=== PATIENT | female | born 1990 | race African-American/Black ===

== ENCOUNTER 2017-05-25 02:28 | Emergency (ER) | payer OTHER, SELFPAY ==
[2017-05-25] MEDS ORDERED: Ketorolac Tromethamine 30 MG/ML VIAL ONE (03:11)
== END 2017-05-25 03:32 | disposition home or self-care (01) ==
LOC: ERS 02:28
DX: K02.9 Dental caries, unspecified (principal); F32.9 Major depressive disorder, single episode, unspecified; F41.9 Anxiety disorder, unspecified; F41.0 Panic disorder [episodic paroxysmal anxiety]; F40.240 Claustrophobia
CPT/HCPCS: 96372; J1885

== ENCOUNTER 2017-05-28 19:01 | Emergency (ER) | payer SELFPAY | END 2017-05-28 19:36 | disposition left against medical advice (07) | LOC: ERS 19:01 | DX: Z53.21 Procedure and treatment not carried out due to patient leaving prior to being seen by health care provider (principal) ==

== ENCOUNTER 2017-06-01 03:25 | Emergency (ER) | payer SELFPAY | END 2017-06-01 04:14 | disposition left against medical advice (07) | LOC: ERS 03:25 | DX: Z53.21 Procedure and treatment not carried out due to patient leaving prior to being seen by health care provider (principal) ==

== ENCOUNTER 2017-07-21 11:12 | Emergency (ER) | payer SELFPAY ==
--- NOTE | 2017-07-21 11:59 | RAD ---
PA AND LATERAL CHEST RADIOGRAPH: Date: 07-21-17 History: Chest pain that started on Friday. Crackling in lungs. Comparison: 01-27-06 FINDINGS: The cardiac silhouette and pulmonary vasculature are within normal limits. Lungs remain clear. There has been no interval change from the prior exam. IMPRESSION: No acute cardiopulmonary process. POS: [facility]
[2017-07-21 12:10] LABS: #Basophils 0.1 thou/uL (0.0-0.2); #Eosinphils 0.2 thou/uL (0.0-0.7); #Lymphocytes 1.9 thou/uL (1.20-3.40); #Monocytes 0.4 thou/uL (0.11-0.59); #Neutrophils 3.2 thou/uL (1.40-6.50); %Basophils 1.3 % (0.0-1.0); %Eosinophils 3.7 % (0.0-10.0); %Monocytes 6.2 % (0.0-10.0); %Neutrophils 55.7 % (42.0-75.0); Hemoglobin 12.3 g/dL (12.0-16.0); Mean Corpuscular Hemoglobin 30.2 pg (27.0-31.0); Mean Corpuscular Volume 88.7 fl (81.0-99.0); Mean Platelet Volume 8.6 fL (7.4-10.4); Platelet Count 267 thou/uL (130-400); Red Blood Cell (RBC) Count 4.09 mill/uL (4.20-5.40); White Blood Cell (WBC) Count 5.8 thou/uL (4.8-10.8)
[2017-07-21 12:30] LABS: ALT (SGPT) 13 U/L (8-55); AST (SGOT) 14 U/L (5-34); Albumin 4.1 g/dL (3.5-5.0); Alkaline Phosphatase 93 U/L (40-150); Anion Gap 11 mmol/L (10-20); BUN (Urea Nitrogen) 12 mg/dL (7.0-18.7); Bilirubin, Total 0.5 mg/dL (0.2-1.2); CK (CPK) 42 U/L (29-168); Calc. Creatinine Clearance 0 mL/min (70-130); Calcium 9.2 mg/dL (7.8-10.44); Carbon Dioxide 22 mmol/L (22-29); Chloride 108 mmol/L (98-107); Estimated GFR-MDRD Greater than 90; Globulin 3.3 g/dL (2.4-3.5); Glucose 89 mg/dL (70-105); Lipase 30 U/L (8-78); Potassium 3.9 mmol/L (3.5-5.1); Protein, Total 7.4 g/dL (6.0-8.3); Sodium 137 mmol/L (136-145)
[2017-07-21 12:34] LABS: CKMB 0.2 ng/mL (0-6.6); Troponin I Less than 0.010 ng/mL (< 0.028)
[2017-07-21 13:28] LABS: Bilirubin Negative (Negative); Blood, Urine Negative (Negative); Clarity CLEAR (Clear); Glucose, Urine (Dipstick) Negative (Negative); Leukocyte Small (Negative); Nitrite Negative (Negative); Protein, Urine (Dipstick) Negative (Neg-Trace); Specific Gravity, Urine 1.014 (1.002-1.036)
[2017-07-21 13:30] LABS: Bacteria/HPF Rare-Few HPF (None Seen); Hyaline Casts/LPF 0-3 HYALINE CAST LPF (0-3 Hyaline); Pathc Cast-AUWi Flag 0.29 (0-2.49); Pregnancy Test - Urine (BHCG) Negative (Negative); Pregu Control Background? CLEAR/WHITE (CLR/WHITE); Pregu Control Bar Appear? YES (CONTROL BAR); RBC/HPF 0-3 HPF (0-3); Specific Gravity 1.014 (1.002-1.036)
== END 2017-07-21 14:51 | disposition home or self-care (01) ==
LOC: ERS 11:12
DX: K21.9 Gastro-esophageal reflux disease without esophagitis (principal); F32.9 Major depressive disorder, single episode, unspecified; F41.9 Anxiety disorder, unspecified; F41.0 Panic disorder [episodic paroxysmal anxiety]
CPT/HCPCS: 36415; 71046; 80053; 81003; 81015; 81025; 82550; 82553; 83690; 83880; 84484; 85025; 87086; 93005

== ENCOUNTER 2018-05-29 17:23 | Emergency (ER) | payer SELFPAY ==
[~2018-05-29 17:23] MED LIST: ISOVUE-370 76%-LOCM 1 ML ONE
--- NOTE | 2018-05-29 18:16 | RAD ---
TWO VIEWS CHEST: 05/29/18 HISTORY: Chest pain. PA and lateral views of the chest obtained on 05/29/18. Comparison made to previous exam from 07/21/17. Two views chest demonstrate the lungs to be well aerated. No evidence of active intrathoracic diseas e seen. No evidence of effusions, pneumonia, or pneumothorax seen. IMPRESSION: Unremarkable two views chest. POS: [facility]
[2018-05-29 18:27] LABS: #Basophils 0.1 thou/uL (0.0-0.2); #Eosinphils 0.2 thou/uL (0.0-0.7); #Lymphocytes 2.3 thou/uL (1.20-3.40); #Monocytes 0.4 thou/uL (0.11-0.59); #Neutrophils 2.4 thou/uL (1.40-6.50); %Basophils 2.2 % (0.0-1.0); %Eosinophils 3.8 % (0.0-10.0); %Lymphocytes 42.1 % (21.0-51.0); %Monocytes 7.6 % (0.0-10.0); %Neutrophils 44.2 % (42.0-75.0); Hemoglobin 12.5 g/dL (12.0-16.0); Mean Corpuscular HGB CONC 33.6 g/dL (32.0-36.0); Mean Corpuscular Hemoglobin 30.3 pg (27.0-31.0); Mean Platelet Volume 8.7 fL (7.4-10.4); Platelet Count 262 thou/uL (130-400); RBC Distribution Width 12.2 % (11.5-14.5); Red Blood Cell (RBC) Count 4.14 mill/uL (4.20-5.40); White Blood Cell (WBC) Count 5.5 thou/uL (4.8-10.8)
[2018-05-29 18:41] LABS: ALT (SGPT) 13 U/L (8-55); AST (SGOT) 12 U/L (5-34); Albumin 3.9 g/dL (3.5-5.0); Alkaline Phosphatase 85 U/L (40-150); Anion Gap 11 mmol/L (10-20); BUN (Urea Nitrogen) 7 mg/dL (7.0-18.7); Bilirubin, Total 0.3 mg/dL (0.2-1.2); CK (CPK) 55 U/L (29-168); Calc. Creatinine Clearance 0 mL/min (70-130); Calcium 9.1 mg/dL (7.8-10.44); Carbon Dioxide 25 mmol/L (22-29); Chloride 107 mmol/L (98-107); Estimated GFR-MDRD Greater than 90; Globulin 3.3 g/dL (2.4-3.5); Glucose 81 mg/dL (70-105); Lipase 29 U/L (8-78); Potassium 3.7 mmol/L (3.5-5.1); Protein, Total 7.2 g/dL (6.0-8.3); Sodium 139 mmol/L (136-145)
[2018-05-29 18:53] LABS: Bilirubin Negative (Negative); Blood, Urine Large (Negative); Clarity CLEAR (Clear); Glucose, Urine (Dipstick) Negative (Negative); Leukocyte Negative (Negative); Nitrite Negative (Negative); Protein, Urine (Dipstick) Negative (Neg-Trace); Specific Gravity, Urine 1.017 (1.002-1.036)
[2018-05-29 18:58] LABS: Pregnancy Test - Urine (BHCG) Negative (Negative); Pregu Control Background? CLEAR/WHITE (CLR/WHITE); Pregu Control Bar Appear? YES (CONTROL BAR); Specific Gravity 1.017 (1.002-1.036)
[2018-05-29 19:00] LABS: Bacteria/HPF None Seen HPF (None Seen); Hyaline Casts/LPF 0-3 HYALINE CAST LPF (0-3 Hyaline); Pathc Cast-AUWi Flag 0.14 (0-2.49); RBC/HPF GREATER THAN 50-TNTC HPF (0-3); Squamous Epithelial 0-3 HPF (0-3); WBC/HPF 0-3 HPF (0-3)
[2018-05-29 19:34] LABS: BHCG - Serum Negative (NEGATIVE); Pregs Control Background? CLEAR/WHITE (CLR/WHITE); Pregs Control Bar Appear? YES (CONTROL BAR)
[2018-05-29] MEDS ORDERED: Lidocaine Viscous Sol 2% 15 ml UD Cup ONE (20:14)
[2018-05-29] MEDS ORDERED: Mag-Al 1200 mg/1200 mg/30 ML UDCUP ONE (20:14)
--- NOTE | 2018-05-29 21:07 | CT ---
CONTRAST ENHANCED CTA CHEST 05/29/18 HISTORY: Intermittent chest pain. Contrast enhanced CTA of the chest is performed. 2D and 3D reconstructed images performed on an [employer] 3D workstation. CTA chest demonstrates no evidence of pleural or pericardial effusions. No evidence of hemo or pneumothorax seen. No evidence of pulmonary parenchymal lesions seen. No evidence of filling defects seen in the pulmonary arteries to suggest pulmonary emboli. IMPRESSION: Normal CTA chest. POS: [facility]
== END 2018-05-29 21:13 | disposition home or self-care (01) ==
LOC: ERS 17:23
DX: R09.1 Pleurisy (principal); R00.2 Palpitations; F32.9 Major depressive disorder, single episode, unspecified; F41.0 Panic disorder [episodic paroxysmal anxiety]
CPT/HCPCS: 36415; 71046; 71275; 80053; 81003; 81015; 81025; 82550; 83690; 84484; 84703; 85025; 85379; 93005; 94760; 96360; Q9966

== ENCOUNTER 2018-11-20 07:51 | Emergency (ER) | payer SELFPAY ==
[2018-11-20] MEDS ORDERED: Ketorolac Tromethamine 30 MG/ML VIAL ONE (08:39)
[2018-11-20] MEDS ORDERED: Metoclopramide HCl 10 MG/2 ML VIAL ONE (08:39)
[2018-11-20] MEDS ORDERED: Magnesium 2 GM/50 ML BAG (IN WATER) ONE (08:39)
== END 2018-11-20 11:10 | disposition home or self-care (01) ==
LOC: ERS 07:51
DX: R51 Headache (principal); F32.9 Major depressive disorder, single episode, unspecified; F41.0 Panic disorder [episodic paroxysmal anxiety]
CPT/HCPCS: 96365; 96366; 96368; 96375; J1885; J2765; J3475

== ENCOUNTER 2019-01-15 09:47 | Emergency (ER) | payer SELFPAY ==
--- NOTE | 2019-01-15 10:59 | ULT ---
Bilateral lower extremity venous Doppler ultrasound: 01/15/2019 COMPARISON: None HISTORY: Leg pain, assess for DVT TECHNIQUE: Multiplanar grayscale sonographic imaging of the venous structures of bilateral lower extr emities obtained with color flow and spectral analysis FINDINGS: The right common femoral vein, greater saphenous vein, profunda femoral vein, femoral vein, popliteal vein, and posterior tibial vein are patent. There is no evidence for deep venous thrombosis within the right lower. The left common femoral vein and greater saphenous vein appear patent. The mid and proximal femoral vein on the left appear unremarkable. However, the distal aspect of the femoral vein on the left is noncompressible, suspicious for focal area of DVT. Left posterior tibial vein and popliteal vein are patent. IMPRESSION: Findings suggesting DVT within the distal left femoral vein. Report called to Dr. Hilario at 10:55 AM 01/15/2019
[2019-01-15 11:28] LABS: #Eosinphils 0.3 thou/uL (0.0-0.7); #Lymphocytes 2.2 thou/uL (1.20-3.40); #Monocytes 0.3 thou/uL (0.11-0.59); #Neutrophils 2.7 thou/uL (1.40-6.50); %Basophils 0.6 % (0.0-1.0); %Eosinophils 4.8 % (0.0-10.0); %Lymphocytes 39.8 % (21.0-51.0); %Monocytes 4.6 % (0.0-10.0); %Neutrophils 50.2 % (42.0-75.0); Mean Corpuscular HGB CONC 35.3 g/dL (32.0-36.0); Mean Corpuscular Hemoglobin 30.8 pg (27.0-31.0); Mean Corpuscular Volume 87.3 fL (78.0-98.0); Mean Platelet Volume 9.3 fL (7.4-10.4); Platelet Count 246 thou/uL (130-400); RBC Distribution Width 12.3 % (11.5-14.5); Red Blood Cell (RBC) Count 4.23 mill/uL (4.20-5.40); White Blood Cell (WBC) Count 5.4 thou/uL (4.8-10.8)
[2019-01-15 11:38] LABS: BHCG - Serum Negative (NEGATIVE); Pregs Control Bar Appear? YES (CONTROL BAR)
[2019-01-15 11:39] LABS: Pregs Control Background? CLEAR/WHITE (CLR/WHITE)
[2019-01-15 11:57] LABS: INR-International Normal Ratio 1.1; PTT 30.4 SEC (22.9-36.1); Prothrombin Time 14.1 SEC (12.0-14.7)
[2019-01-15 12:20] LABS: ALT (SGPT) 14 U/L (8-55); AST (SGOT) 14 U/L (5-34); Albumin 4.4 g/dL (3.5-5.0); Alkaline Phosphatase 96 U/L (40-110); Anion Gap 12 mmol/L (10-20); BUN (Urea Nitrogen) 8 mg/dL (7.0-18.7); Bilirubin, Total 0.7 mg/dL (0.2-1.2); Calc. Creatinine Clearance 0 mL/min (70-130); Calcium 9.3 mg/dL (7.8-10.44); Carbon Dioxide 24 mmol/L (22-29); Chloride 108 mmol/L (98-107); Estimated GFR-MDRD Greater than 90; Globulin 3.3 g/dL (2.4-3.5); Glucose 83 mg/dL (70-105); Potassium 3.8 mmol/L (3.5-5.1); Protein, Total 7.7 g/dL (6.0-8.3); Sodium 140 mmol/L (136-145)
--- NOTE | 2019-01-15 12:30 | CT ---
CTA CHEST WITH CONTRAST, AND 3-D VOLUME RENDERING CLINICAL INDICATION: Short of breath Comparison exam: 05/29/2018 FINDINGS: Pulmonary embolus:Diminished density of contrast bolus, diffusely does limit sensitivity, although no definite large central filling defect of the pulmonary trunk or main pulmonary arteries is visualized. Pulmonary parenchymal consolidation:None Pleural effusion: None Pneumothorax: None Osseous structures: No acute process. There is an aberrant right subclavian artery. Thoracic aorta is normal in caliber. IMPRESSION: No large, central pulmonary was identified, within limitations.
[2019-01-15] MEDS ORDERED: Rivaroxaban 15 MG TAB PO SCH (14:45)
== END 2019-01-15 15:15 | disposition home or self-care (01) ==
LOC: ERS 09:47
DX: I82.412 Acute embolism and thrombosis of left femoral vein (principal); F32.9 Major depressive disorder, single episode, unspecified; F41.0 Panic disorder [episodic paroxysmal anxiety]
CPT/HCPCS: 71275; 80053; 84703; 85025; 85610; 85730; 93970

== ENCOUNTER 2019-01-30 20:40 | Emergency (ER) | payer SELFPAY ==
[2019-01-30 21:43] LABS: Bilirubin Negative (Negative); Blood, Urine Negative (Negative); Clarity Clear (Clear); Glucose, Urine (Dipstick) Normal (Negative); Leukocyte Negative Leu/uL (Negative); Nitrite Negative (Negative); Protein, Urine (Dipstick) Negative (Neg-Trace); Urobilinogen Normal mg/dL (Less than 2)
[2019-01-30 21:45] LABS: Pregnancy Test - Urine (BHCG) Negative (Negative); Pregu Control Background? CLEAR/WHITE (CLR/WHITE); Pregu Control Bar Appear? YES (CONTROL BAR); Specific Gravity 1.015 (1.002-1.036)
[2019-01-30] MEDS ORDERED: diphenhydrAMINE 25 MG CAP ONE (21:48)
[2019-01-30] MEDS ORDERED: Metoclopramide HCl 10 MG TAB ONE (21:49)
--- NOTE | 2019-01-30 23:04 | CT ---
CT Brain WO Con HISTORY: Headache COMPARISON: 04/18/2014 study FINDINGS: The ventricular and cisternal system is within normal limits. There are no signs of intrace rebral hemorrhage or extra-axial fluid collections. The mastoid air cells are clear. There is mild ethmoid air cell mucosal change. IMPRESSION: No acute intracranial abnormalities.
== END 2019-01-30 23:33 | disposition home or self-care (01) ==
LOC: ERS 20:40
DX: G43.909 Migraine, unspecified, not intractable, without status migrainosus (principal); F41.0 Panic disorder [episodic paroxysmal anxiety]; F32.9 Major depressive disorder, single episode, unspecified; Z79.01 Long term (current) use of anticoagulants
CPT/HCPCS: 70450; 81003; 81025; Q0163

== ENCOUNTER 2019-02-12 11:31 | Emergency (ER) | payer SELFPAY ==
--- NOTE | 2019-02-12 11:51 | RAD ---
1 view chest: CLINICAL HISTORY: Pain COMPARISON: 08/19/2014 FINDINGS: There is no focal consolidation, effusion, or pneumothorax. Cardiac silhouette is normal in size. No acute osseous abnormality. IMPRESSION: No focal consolidation.
[2019-02-12 12:45] LABS: #Basophils 0.1 thou/uL (0.0-0.2); #Eosinphils 0.2 thou/uL (0.0-0.7); #Lymphocytes 1.9 thou/uL (1.20-3.40); #Monocytes 0.3 thou/uL (0.11-0.59); #Neutrophils 2.3 thou/uL (1.40-6.50); %Basophils 1.2 % (0.0-1.0); %Eosinophils 3.3 % (0.0-10.0); %Lymphocytes 41.2 % (21.0-51.0); %Monocytes 5.5 % (0.0-10.0); %Neutrophils 48.8 % (42.0-75.0); Hemoglobin 11.7 g/dL (12.0-16.0); Mean Corpuscular HGB CONC 34.5 g/dL (32.0-36.0); Mean Corpuscular Hemoglobin 30.3 pg (27.0-31.0); Mean Corpuscular Volume 87.6 fL (78.0-98.0); Mean Platelet Volume 8.9 fL (7.4-10.4); Platelet Count 232 thou/uL (130-400); Red Blood Cell (RBC) Count 3.88 mill/uL (4.20-5.40); White Blood Cell (WBC) Count 4.7 thou/uL (4.8-10.8)
[2019-02-12 13:15] LABS: ALT (SGPT) 13 U/L (8-55); AST (SGOT) 12 U/L (5-34); Alkaline Phosphatase 87 U/L (40-110); Anion Gap 8 mmol/L (10-20); BUN (Urea Nitrogen) 7 mg/dL (7.0-18.7); Bilirubin, Total 0.7 mg/dL (0.2-1.2); Calc. Creatinine Clearance 0 mL/min (70-130); Calcium 9.1 mg/dL (7.8-10.44); Carbon Dioxide 28 mmol/L (22-29); Chloride 109 mmol/L (98-107); Estimated GFR-MDRD Greater than 90; Globulin 2.7 g/dL (2.4-3.5); Glucose 82 mg/dL (70-105); Potassium 3.7 mmol/L (3.5-5.1); Protein, Total 6.7 g/dL (6.0-8.3); Sodium 141 mmol/L (136-145)
[2019-02-12 13:25] LABS: Bilirubin Negative (Negative); Blood, Urine Negative (Negative); Clarity Clear (Clear); Glucose, Urine (Dipstick) Normal (Negative); Leukocyte 75 Leu/uL (Negative); Nitrite Negative (Negative); Protein, Urine (Dipstick) Negative (Neg-Trace); RBC/HPF 0-3 HPF (0-3); Squamous Epithelial 0-3 HPF (0-3); Urobilinogen Normal mg/dL (Less than 2)
[2019-02-12 13:25] LABS: BHCG - Serum Negative (NEGATIVE); Pregs Control Background? CLEAR/WHITE (CLR/WHITE); Pregs Control Bar Appear? YES (CONTROL BAR)
[2019-02-12 13:30] LABS: CK (CPK) 57 U/L (29-168); Lipase 27 U/L (8-78)
[2019-02-12 13:40] LABS: Bacteria/HPF Rare-Few HPF (None Seen)
[2019-02-12] MEDS ORDERED: Mag-Al 1200 mg/1200 mg/30 ML UDCUP ONE (14:04)
[2019-02-12] MEDS ORDERED: Pantoprazole 40 MG VIAL ONE (14:04)
[2019-02-12] MEDS ORDERED: Lidocaine Viscous Sol 2% 15 ml UD Cup ONE (14:04)
--- NOTE | 2019-02-12 14:10 | CT ---
CTA CHEST WITH CONTRAST: Date: 02/12/19 COMPARISON: 01/15/19. HISTORY: Chest pain for a week. TECHNIQUE: Multiple contiguous axial images were obtained in a CTA of the chest with contrast per pulmonary embo lism protocol. 3D oblique MIP reformats and direct coronal reformats were performed. FINDINGS: The pulmonary arteries are well opacified without filling defects to suggest pulmonary emboli. The he art is normal in size, without focal cardiac abnormality. Soft tissue density in the anterior mediast inum likely represents residual thymus. No hilar or mediastinal lymphadenopathy seen. No focal infiltrates or masses are seen in the lungs. No pneumothorax or pleural effusions seen. The visualized subdiaphragmatic structures and chest wall soft tissues are unremarkable. IMPRESSION: No evidence of pulmonary thromboembolism. POS: [facility]
[2019-02-12] MEDS ORDERED: Iopamidol-370 76% 500 ML 1 ML ONE (16:19)
== END 2019-02-12 14:21 | disposition home or self-care (01) ==
LOC: ERS 11:31
DX: K20.9 Esophagitis, unspecified (principal)
CPT/HCPCS: 36415; 71045; 71275; 80053; 81003; 81015; 82550; 83690; 84484; 84703; 85025; 87086; 93005; 96374; C9113; Q9967

== ENCOUNTER 2019-03-31 03:20 | Emergency (ER) | payer SELFPAY | END 2019-03-31 05:07 | disposition home or self-care (01) | LOC: ERS 03:20 | DX: K13.79 Other lesions of oral mucosa (principal); F41.9 Anxiety disorder, unspecified; F32.9 Major depressive disorder, single episode, unspecified; Z79.01 Long term (current) use of anticoagulants; Z86.718 Personal history of other venous thrombosis and embolism; Z79.899 Other long term (current) drug therapy | CPT/HCPCS: 99283 ==

== ENCOUNTER 2019-04-06 11:28 | Emergency (ER) | payer SELFPAY ==
[2019-04-06 11:52] LABS: #Eosinphils 0.2 thou/uL (0.0-0.7); #Lymphocytes 2.1 thou/uL (1.20-3.40); #Monocytes 0.3 thou/uL (0.11-0.59); #Neutrophils 3.2 thou/uL (1.40-6.50); %Basophils 0.6 % (0.0-1.0); %Eosinophils 3.9 % (0.0-10.0); %Monocytes 5.1 % (0.0-10.0); %Neutrophils 54.4 % (42.0-75.0); Hemoglobin 12.4 g/dL (12.0-16.0); Mean Corpuscular HGB CONC 35.8 g/dL (32.0-36.0); Mean Corpuscular Hemoglobin 31.4 pg (27.0-31.0); Mean Corpuscular Volume 87.5 fL (78.0-98.0); Mean Platelet Volume 8.9 fL (7.4-10.4); Platelet Count 233 thou/uL (130-400); RBC Distribution Width 11.6 % (11.5-14.5); Red Blood Cell (RBC) Count 3.95 mill/uL (4.20-5.40); White Blood Cell (WBC) Count 5.8 thou/uL (4.8-10.8)
[2019-04-06 12:16] LABS: ALT (SGPT) 14 U/L (8-55); AST (SGOT) 12 U/L (5-34); Alkaline Phosphatase 92 U/L (40-110); Anion Gap 11 mmol/L (10-20); BUN (Urea Nitrogen) 7 mg/dL (7.0-18.7); Bilirubin, Total 0.5 mg/dL (0.2-1.2); Calc. Creatinine Clearance 0 mL/min (70-130); Calcium 8.9 mg/dL (7.8-10.44); Carbon Dioxide 27 mmol/L (22-29); Chloride 106 mmol/L (98-107); Estimated GFR-MDRD Greater than 90; Globulin 3.5 g/dL (2.4-3.5); Glucose 88 mg/dL (70-105); Potassium 3.4 mmol/L (3.5-5.1); Protein, Total 7.5 g/dL (6.0-8.3); Sodium 141 mmol/L (136-145)
== END 2019-04-06 15:39 | disposition home or self-care (01) ==
LOC: ERS 11:28
DX: N93.8 Other specified abnormal uterine and vaginal bleeding (principal); F32.9 Major depressive disorder, single episode, unspecified; F41.0 Panic disorder [episodic paroxysmal anxiety]; Z79.899 Other long term (current) drug therapy; Z86.718 Personal history of other venous thrombosis and embolism
CPT/HCPCS: 36415; 80053; 84702; 85025; 86900; 86901; 99284

== ENCOUNTER 2019-05-13 13:05 | Outpatient (CLI) | payer OTHER ==
--- NOTE | 2019-05-13 13:55 | ULT ---
LEFT LOWER EXTREMITY VENOUS ULTRASOUND WITH DOPPLER: HISTORY: Followup left leg deep vein thrombus. COMPARISON: 01/15/2019. TECHNIQUE: Grayscale, color flow, Doppler imaging and spectral wave analysis was performed of the left lower ext remity venous system. FINDINGS: Limited evaluation due to body habitus. There is compressibility, presence of flow and augmentation i n the common femoral vein, femoral vein and popliteal vein. There is flow in the greater saphenous vein, profunda femoral vein and flow and augmentation in the posterior tibial vein IMPRESSION: No evidence of thrombus in the left lower extremity deep venous system. Evaluation is limited by body habitus. Transcribed Date/Time: 05/13/2019 2:13 PM
== END 2019-05-13 13:06 | disposition home or self-care (01) ==
LOC: BICULT 13:05
PROVIDERS: ATTEND Nurse Practitioner Family
DX: I82.402 Acute embolism and thrombosis of unspecified deep veins of left lower extremity (principal)

== ENCOUNTER 2019-05-21 13:36 | Emergency (ER) | payer SELFPAY ==
--- NOTE | 2019-05-21 15:04 | CT ---
Exam: Head CT without contrast HISTORY: Headache. COMPARISON: 01/30/2019 FINDINGS: Hemorrhage: No intraparenchymal hemorrhage or extra-axial hematoma. Brain parenchyma: Cortical blankenship-white matter differentiation is preserved. No mass effect or midline shift. Basilar cisterns are patent. Ventricular system: Ventricles and sulci are patent and symmetric. Calvarium: Intact. Sinuses and mastoid air cells: Adequate aeration. IMPRESSION: No acute intracranial process.
[2019-05-21] MEDS ORDERED: Acetaminophen 500 MG TAB ONE (15:32)
[2019-05-21] MEDS ORDERED: diphenhydrAMINE 50 MG/ML VIAL ONE (15:32)
[2019-05-21] MEDS ORDERED: Prochlorperazine 10 MG/2 ML VIAL IVP SCH (16:00)
== END 2019-05-21 17:39 | disposition home or self-care (01) ==
LOC: ERS 13:36
DX: R51 Headache (principal); F41.9 Anxiety disorder, unspecified; F32.9 Major depressive disorder, single episode, unspecified; Z79.01 Long term (current) use of anticoagulants
CPT/HCPCS: 70450; 96361; 96374; J0780; J1200

== ENCOUNTER 2020-05-29 08:13 | Emergency (ER) | payer SELFPAY ==
[2020-05-29] MEDS ORDERED: Ketorolac Tromethamine 30 MG/ML VIAL ONE (08:29)
== END 2020-05-29 09:12 | disposition home or self-care (01) ==
LOC: ERS 08:13
DX: M62.838 Other muscle spasm (principal); Z86.718 Personal history of other venous thrombosis and embolism
CPT/HCPCS: 96372; 99283; J1885

== ENCOUNTER 2020-11-17 07:59 | Emergency (ER) | payer SELFPAY ==
[2020-11-17 08:43] LABS: #Eosinphils 0.2 thou/uL (0.0-0.7); #Lymphocytes 1.6 thou/uL (1.20-3.40); #Monocytes 0.3 thou/uL (0.11-0.59); #Neutrophils 2.3 thou/uL (1.40-6.50); %Basophils 0.4 % (0.0-1.0); %Eosinophils 4.5 % (0.0-10.0); %Lymphocytes 36.5 % (21.0-51.0); %Monocytes 6.6 % (0.0-10.0); Hemoglobin 11.5 g/dL (12.0-16.0); Mean Corpuscular HGB CONC 34.3 g/dL (32.0-36.0); Mean Corpuscular Hemoglobin 30.3 pg (27.0-31.0); Mean Corpuscular Volume 88.4 fL (78.0-98.0); Mean Platelet Volume 8.3 fL (7.4-10.4); Platelet Count 222 thou/uL (130-400); RBC Distribution Width 12.5 % (11.5-14.5); White Blood Cell (WBC) Count 4.4 thou/uL (4.8-10.8)
[2020-11-17 09:09] LABS: ALT (SGPT) 15 U/L (8-55); AST (SGOT) 13 U/L (5-34); Albumin 3.7 g/dL (3.5-5.0); Alkaline Phosphatase 80 U/L (40-110); Anion Gap 11 mmol/L (10-20); BUN (Urea Nitrogen) 6 mg/dL (7.0-18.7); Bilirubin, Total 0.4 mg/dL (0.2-1.2); Calc. Creatinine Clearance 0 mL/min (70-130); Calcium 8.8 mg/dL (7.8-10.44); Carbon Dioxide 24 mmol/L (22-29); Chloride 108 mmol/L (98-107); Globulin 3.4 g/dL (2.4-3.5); Glucose 100 mg/dL (70-105); Potassium 3.7 mmol/L (3.5-5.1); Protein, Total 7.1 g/dL (6.0-8.3); Sodium 139 mmol/L (136-145)
== END 2020-11-17 09:49 | disposition home or self-care (01) ==
LOC: ERS 07:59
DX: J01.90 Acute sinusitis, unspecified (principal); J31.0 Chronic rhinitis
CPT/HCPCS: 36415; 71045; 80053; 84484; 85025; 93005

== ENCOUNTER 2020-11-24 08:08 | Emergency (ER) | payer SELFPAY | END 2020-11-24 08:32 | disposition home or self-care (01) | LOC: ERS 08:08 | DX: R20.2 Paresthesia of skin (principal); Z86.718 Personal history of other venous thrombosis and embolism | CPT/HCPCS: 99283 ==

== ENCOUNTER 2021-01-11 23:50 | Emergency (ER) | payer SELFPAY ==
[2021-01-12] MEDS ORDERED: Metoclopramide 10 MG/10 ML UDCUP ONE (00:49)
[2021-01-12] MEDS ORDERED: Ketorolac Tromethamine 30 MG/ML VIAL ONE (00:49)
[2021-01-12] MEDS ORDERED: diphenhydrAMINE 50 MG/ML VIAL ONE (00:49)
[2021-01-12] MEDS ORDERED: Metoclopramide HCl 10 MG/2 ML VIAL ONE ×2 (00:50→00:53)
== END 2021-01-12 01:08 | disposition home or self-care (01) ==
LOC: ERS 23:50
DX: R07.89 Other chest pain (principal); G43.909 Migraine, unspecified, not intractable, without status migrainosus; Z86.718 Personal history of other venous thrombosis and embolism
CPT/HCPCS: 93005; 96372; J1200; J1885; J2765

== ENCOUNTER 2023-01-09 11:09 | Emergency (ER) | payer SELFPAY ==
[2023-01-09] MEDS ORDERED: Dexameth. Sod Phosp. 10 MG/ML (CHEMO USE ONLY) ONE (12:00)
[2023-01-09] MEDS ORDERED: Metoclopramide HCl 10 MG/2 ML VIAL ONE (12:01)
[2023-01-09] MEDS ORDERED: Magnesium 2 GM/50 ML BAG (IN WATER) ONE (12:01)
[2023-01-09] MEDS ORDERED: diphenhydrAMINE 50 MG/ML VIAL ONE (12:01)
[2023-01-09 12:41] LABS: Bacteria/HPF None Seen HPF (None Seen); Bilirubin Negative (Negative); Blood, Urine 3+ (Negative); CAUTI Indications for Culture Dysuria,urgency,freq; Clarity Clear (Clear); Glucose, Urine (Dipstick) Normal (Negative); Ketone, Urine Negative (Negative); Leukocyte Negative Leu/uL (Negative); Nitrite Negative (Negative); Protein, Urine (Dipstick) Negative (Neg-Trace); Specific Gravity, Urine 1.013 (1.002-1.036); Squamous Epithelial 0-3 HPF (0-3); Urobilinogen Normal mg/dL (Less than 2); WBC/HPF 0-3 HPF (0-3); pH, Urine 8.5 (5.0-9.0)
[2023-01-09 12:42] LABS: Pregnancy Test - Urine (BHCG) Negative (Negative); Pregu Control Background? CLEAR/WHITE (CLR/WHITE); Pregu Control Bar Appear? YES (CONTROL BAR); Specific Gravity 1.013 (1.002-1.036); Urine Culture Reflex No No
[2023-01-09] MEDS ORDERED: Ketorolac Tromethamine 30 MG/ML VIAL ONE (12:59)
[2023-01-09 13:42] LABS: SARS-CoV-2 NAA Rapid Test Not Detected (NotDetected)
[2023-01-09] MEDS ORDERED: Magnesium Sulfate 1 GM, Admixture Fee 1 EACH in Sodium Chloride 0.9% 100 ML IVPB SCH (14:00)
== END 2023-01-09 13:57 | disposition home or self-care (01) ==
LOC: ERS 11:09
DX: R51.9 Headache, unspecified (principal); R11.2 Nausea with vomiting, unspecified; Z20.822 Contact with and (suspected) exposure to COVID-19
CPT/HCPCS: 81001; 81025; 96365; 96368; 96375; J1100; J1200; J1885; J2765; J3475; J3490

== ENCOUNTER 2024-03-02 02:55 | Emergency (ER) | payer BC ==
[2024-03-02] MEDS ORDERED: Metoclopramide HCl 10 MG (2 mL) VIAL ONE (03:46)
[2024-03-02] MEDS ORDERED: diphenhydrAMINE 50 MG/ML VIAL ONE (03:46)
== END 2024-03-02 06:24 | disposition home or self-care (01) ==
LOC: ERS 02:55
DX: G43.909 Migraine, unspecified, not intractable, without status migrainosus (principal)
CPT/HCPCS: 96374; 96375; J1200; J2765

== ENCOUNTER 2024-04-16 03:25 | Emergency (ER) | payer BC ==
[2024-04-16] MEDS ORDERED: Fluconazole 100 MG TAB ONE (03:49)
[2024-04-16 04:18] LABS: Bacteria/HPF None Seen HPF (None Seen); Bilirubin Negative (Negative); Blood, Urine Negative (Negative); CAUTI Indications for Culture Dysuria,urgency,freq; Clarity Turbid (Clear); Glucose, Urine (Dipstick) Normal (Negative); Ketone, Urine Negative (Negative); Leukocyte 500 Leu/uL (Negative); Nitrite Negative (Negative); Protein, Urine (Dipstick) 10 mg/dL (Neg-Trace); Specific Gravity, Urine 1.021 (1.002-1.036); Urobilinogen Normal mg/dL (Less than 2); WBC/HPF Greater than 50 HPF (0-3); pH, Urine 5.5 (5.0-9.0)
[2024-04-16 04:19] LABS: Pregnancy Test - Urine (BHCG) Negative (Negative); Pregu Control Background? CLEAR/WHITE (CLR/WHITE); Pregu Control Bar Appear? YES (CONTROL BAR); Specific Gravity 1.021 (1.002-1.036); Urine Culture Reflex Yes Yes
[2024-04-16] MEDS ORDERED: Ketorolac Tromethamine 30 MG (1 mL) VIAL ONE (04:28)
[2024-04-16 11:01] LABS: Chlam.trachomatis by PCR,Urine Not Detected (NotDetected); GC N.gonorrhoeae PCR,UrineVOID Not Detected (NotDetected)
== END 2024-04-16 04:35 | disposition home or self-care (01) ==
LOC: ERS 03:25
DX: L29.3 Anogenital pruritus, unspecified (principal)
CPT/HCPCS: 81001; 81025; 87086; 87480; 87491; 87510; 87591; 87660; 96372; 99283; J1885

== ENCOUNTER 2025-01-10 23:28 | Emergency (ER) | payer BC ==
[2025-01-11] MEDS ORDERED: diphenhydrAMINE 50 MG/ML VIAL ONE (00:11)
[2025-01-11] MEDS ORDERED: Metoclopramide HCl 10 MG (2 mL) VIAL ONE (00:12)
[2025-01-11 00:35] LABS: #Basophils 0.03 10x3/uL (0.0-0.2); #Eosinophils 0.14 10x3/uL (0.0-0.7); #Monocytes 0.37 10x3/uL (0.11-0.59); #Neutrophils 3.63 10x3/uL (1.40-6.50); %Basophils 0.5 % (0.0-1.0); %Eosinophils 2.3 % (0.0-10.0); %Lymphocytes 32.6 % (21.0-51.0); %Monocytes 6.0 % (0.0-10.0); %Neutrophils 58.6 % (42.0-75.0); Hematocrit 33.0 % (36.0-47.0); Hemoglobin 11.2 g/dL (12.0-16.0); Mean Corpuscular Hemoglobin 29.6 pg (27.0-31.0); Mean Corpuscular Volume 87.3 fL (78.0-98.0); Platelet Count 230 10x3/uL (130-400); Red Blood Cell (RBC) Count 3.78 mill/uL (4.20-5.40); White Blood Cell (WBC) Count 6.19 10x3/uL (4.8-10.8)
[2025-01-11 00:52] LABS: ALT (SGPT) 12 U/L (Less than 34); AST (SGOT) 14 U/L (11-34); Albumin 3.5 g/dL (3.1-4.5); Alkaline Phosphatase 65 U/L (40-110); Anion Gap 12 mmol/L (10-20); BUN (Urea Nitrogen) 6 mg/dL (7.0-18.7); Bilirubin, Total 0.4 mg/dL (0.3-1.2); Calc. Creatinine Clearance 0 mL/min (70-130); Calcium 8.6 mg/dL (7.8-10.44); Carbon Dioxide 23 mmol/L (22-29); Chloride 107 mmol/L (98-107); Globulin 3.3 g/dL (2.4-3.5); Glucose 86 mg/dL (70-105); Lipase 19 U/L (8-78); Magnesium 1.9 mg/dL (1.6-2.6); Potassium 3.3 mmol/L (3.5-5.1); Sodium 139 mmol/L (136-145)
[2025-01-11 00:54] LABS: Glucose, Urine (Dipstick) Normal (Negative); Leukocyte 500 Leu/uL (Negative); Protein, Urine (Dipstick) Negative (Neg-Trace); Specific Gravity, Urine 1.013 (1.002-1.036)
[2025-01-11 00:55] LABS: Bacteria/HPF None Seen HPF (None Seen); CAUTI Indications for Culture Dysuria,urgency,freq; RBC/HPF 0-3 HPF (0-3); WBC/HPF 21-50 HPF (0-3)
[2025-01-11 00:58] LABS: Urine Culture Reflex Yes Yes
[2025-01-11 02:04] LABS: HCG, Total Quant 46667.73 mIU/mL (See Ranges)
[2025-01-11 02:09] LABS: Thyroid Stimulating Hormone 2.0362 uIU/mL (0.35-4.94)
[2025-01-11] MEDS ORDERED: Potassium Bicarbonate/Cit Ac 20 MEQ TAB ONE (02:29)
== END 2025-01-11 02:40 | disposition home or self-care (01) ==
LOC: ERS 23:28
DX: O99.891 Other specified diseases and conditions complicating pregnancy (principal); E87.6 Hypokalemia; O23.41 Unspecified infection of urinary tract in pregnancy, first trimester; N39.0 Urinary tract infection, site not specified; Z3A.01 Less than 8 weeks gestation of pregnancy
CPT/HCPCS: 76705; 76801; 80053; 81001; 83690; 83735; 84443; 84484; 84702; 85025; 87086; 93005; 96361; 96365; 96368; J1200; J2765